=== PATIENT | female | born 1970 | race Caucasian/White ===

== ENCOUNTER 2017-10-27 06:06 | Day surgery (SDC) | payer OTHER ==
[~2017-10-27] VITALS: Ht 157.5 cm; Wt 68.0 kg
[2017-10-27] MEDS ORDERED: SYN.05 PO (07:10)
[2017-10-27] MEDS ORDERED: VALP-22 GT (07:10)
[2017-10-27] MEDS ORDERED: TOP100 PO (07:10)
[2017-10-27] MEDS ORDERED: fentaNYL 0.05 MG/ML VIAL ONE (07:40)
[2017-10-27] MEDS ORDERED: PROPOFOL 200 MG/20 ML VIAL IV ONE (07:50)
[2017-10-27] MEDS ORDERED: SEVOFLURANE 250 ML BTL INH ONE (07:50)
[2017-10-27] MEDS ORDERED: DEXAMETHASONE 4 MG/ML VIAL IVP ONE (07:50)
[2017-10-27] MEDS ORDERED: KETOROLAC 30 MG/ML VIAL IVP ONE (07:50)
[2017-10-27] MEDS ORDERED: ONDANSETRON 4 MG/2 ML VIAL IVP ONE (07:50)
[2017-10-27] MEDS ORDERED: ACETAMINOPHEN/CODEINE 300/30MG 1 TAB PO PRN (08:15)
[2017-10-27] MEDS ORDERED: MORPHINE SULFATE 4 MG/ML SYR IM/IVP PRN (08:15)
[2017-10-27] MEDS ORDERED: ONDANSETRON 4 MG/2 ML VIAL IVP PRN (08:15)
[2017-10-27] MEDS ORDERED: IBUPROFEN 800 MG TAB PO PRN (08:15)
== END 2017-10-27 09:50 | disposition home or self-care (01) ==
LOC: MDS 06:06 → MMU 06:06 → MDS 09:50
PROVIDERS: ATTEND Obstetrics & Gynecology
DX: N92.1 Excessive and frequent menstruation with irregular cycle (principal); E03.9 Hypothyroidism, unspecified; G40.909 Epilepsy, unspecified, not intractable, without status epilepticus; Z98.890 Other specified postprocedural states; Z79.899 Other long term (current) drug therapy
CPT/HCPCS: 58120; J1100; J1885; J2405; J2704; J3010; J7120; 88305